=== PATIENT | female | born 1985 | race Hispanic/Latino ===

== ENCOUNTER 2021-05-06 09:13 | Day surgery (SDC) | payer OTHER ==
[~2021-05-06] VITALS: Ht 165.1 cm; Wt 64.9 kg
[~2021-05-06 09:13] MED LIST: ACETAMINOPHEN 650 MG SUPP PR ONE; LIDOCAINE 2% 100MG/5ML SDV (FOR ANES.) As Ordered ONE; LR 1,000 ML IV ONE; MIDAZOLAM INJ 2MG/2ML VIAL (J2250 PER 1MG) As Ordered ONE; VITMTA PO; fentaNYL 100 MCG/2 ML INJECTION As Ordered ONE; propofoL 200 MG/20 ML VIAL As Ordered ONE
[2021-05-06] MEDS ORDERED: LEVONORGESTREL 52MG (MIRENA) IUD As Ordered ONE (09:26)
[2021-05-06 09:48] LABS: HEMATOCRIT 42.1 % (36.0-47.0); HEMOGLOBIN 13.8 g/dl (12.0-15.5); MEAN CORPUSCULAR HEMOGLOBIN 30.3 pg (27.0-33.0); MEAN CORPUSCULAR HGB CONC 32.8 g/dl (32.0-36.5); MEAN CORPUSCULAR VOLUME 92.3 fl (80.0-96.0); PLATELET COUNT, AUTOMATED 268 10^3/uL (150-450); RED BLOOD COUNT 4.56 10^6/uL (4.00-5.40); WHITE BLOOD COUNT 7.3 10^3/uL (4.0-10.0)
[2021-05-06 10:19] LABS: BLOOD UREA NITROGEN 12 MG/DL (7-18); CALCIUM LEVEL 9.4 MG/DL (8.5-10.1); CARBON DIOXIDE LEVEL 28 MEQ/L (21-32); CHLORIDE LEVEL 106 MEQ/L (98-107); CREATININE FOR GFR 0.76 MG/DL (0.55-1.30); GLOMERULAR FILTRATION RATE > 60.0 (>60); GLUCOSE, FASTING 91 MG/DL (70-100); HCG, SERUM QUANTITATIVE < 1.0 MIU/ML; POTASSIUM SERUM 4.3 MEQ/L (3.5-5.1); SODIUM LEVEL 140 MEQ/L (136-145)
[2021-05-06] MEDS ORDERED: ACETAMINOPHEN 650 MG SUPP As Ordered ONE (10:36)
[2021-05-06] MEDS ORDERED: ePHEDrine SULFATE 25 MG/5 ML(5MG/ML) SYRINGE As Ordered ONE (11:05)
[2021-05-06] MEDS ORDERED: KETOROLAC 60MG 2ML VIAL As Ordered ONE (11:25)
[2021-05-06] MEDS ORDERED: ONDANSETRON 4MG/2ML VIAL IV PRN (11:55)
[2021-05-06] MEDS ORDERED: LR 1,000 ML IV SCH (11:55)
[2021-05-06] MEDS ORDERED: oxyCODONE 5MG TAB PO PRN (11:55)
[2021-05-06] MEDS ORDERED: fentaNYL 100 MCG/2 ML INJECTION IV PRN (11:55)
[2021-05-06] MEDS ORDERED: METOCLOPRAMIDE INJ 10MG/2ML VIAL (J2765 PER 1) IV PRN (11:55)
[2021-05-06 13:30] VITALS: BP 122/72
== END 2021-05-06 13:32 | disposition home or self-care (01) ==
LOC: M SDC 09:13
PROVIDERS: ATTEND Obstetrics & Gynecology
DX: T83.32XA Displacement of intrauterine contraceptive device, initial encounter (principal); Y76.2 Prosthetic and other implants, materials and accessory obstetric and gynecological devices associated with adverse incidents; N88.2 Stricture and stenosis of cervix uteri
CPT/HCPCS: 36415; 58120; 58300; 58301; 58562; 80048; 84702; 85027; 88300; J1885; J2250; J3010; J7298